=== PATIENT | male | born 1975 | race Two or more races ===

== ENCOUNTER 2017-11-22 11:32 | Emergency (ER) | payer OTHER ==
[2017-11-22 11:39] VITALS: BP 145/86; PULSE 77; RESP 16; TEMP 98.4; O2SAT 96
--- NOTE | 2017-11-22 12:33 | EDPHY ---
H & P Time Seen by Provider: 11/22/17 12:06 HPI/ROS: CHIEF COMPLAINT: Left hand laceration HISTORY OF PRESENT ILLNESS: 42-year-old [id number] male complaining of acute laceration to his left hand when he was using a razor blade at work and slipped. This was accidental. No paresthesia. Tetanus out-of-date. He does not vaccinate. PHYSICAL EXAM (Prior to examination, patient consented to physical exam, hands were washed and my usual and customary physical exam procedures followed) 1) GENERAL: Well-developed, well-nourished, alert and oriented. Appears to be in no acute distress. 2) HEAD: Normocephalic 3) HEENT: sclera anicteric 4) LUNGS: Breathing comfortably. 5) SKIN: Left hand in the dorsal webspace between the thumb and 2nd digit there is a 3 cm well-demarcated laceration, does have partial fascial involvement 6) MUSCULOSKELETAL: Abduction abduction extension intact with no deficits 7) NEUROLOGIC: Full sensation intact distally Smoking Status: Never smoked Constitutional: Initial Vital Signs Temperature (C) 36.9 C 11/22/17 11:37 Heart Rate 77 11/22/17 11:37 Respiratory Rate 16 11/22/17 11:37 Blood Pressure 145/86 H 11/22/17 11:37 O2 Sat (%) 96 11/22/17 11:37 O2 Delivery Mode Room Air Allergies/Adverse Reactions: No Known Allergies Allergy (Unverified 11/22/17 11:37) Home Medications: Medication Instructions Recorded Cephalexin [Keflex] 500 mg PO TID 7 Days cap 11/22/17 MDM/Departure - [facility] Procedures: Procedure: Laceration repair. I explained the indications, risks and benefits for both laceration repair and anesthetic administration. Verbal consent was obtained from the patient. The laceration on the left dorsal hand was anesthetized using 0.5% bupivicaine with epinephrine. After anesthetic administered the patient was observed for a period of time and had no apparent adverse effects. The wound was cleaned, prepped, draped in normal sterile fashion and explored to its base. No foreign body seen, no foreign bodies palpated. The wound was repaired with 6 simple interrupted 5 O Prolene sutures. The wound repair was complex. The procedure was performed by myself. Patient has been informed that scarring will occur, although efforts have been made to minimize this. Procedure: Splint A Velcro volar splint was applied by ER cell phone repair technician. After application of the splint I returned and re-examined the patient. The splint was adequately immobilizing the joint and distal to the splint the patient's circulation and sensation were intact. Patient shows no signs of compartment syndrome. Was given orthopedic precautions. ED Course/Re-evaluation: This patient was re-evaluated with serial examinations. He is noted to have partial laceration of the underlying muscle fascia. Skin has been sutured. He has been placed in Sylvain Velcro thumb spica, start prophylactic antibiotics. His tetanus is out-of-date and he states that he was not believe in vaccinations therefore declines tetanus vaccination. I have recommended follow-up with Hand surgery. This is a work comp related injury. He will need to speak with work comp provider as well however have recommend follow-up with Hand surgery. He is agreeable with this. Usual customary wound precautions instructions provided. Care of patient under supervision of secondary supervising physician Dr Kirkpatrick. - Depart Disposition: Home, Routine, Self-Care Clinical Impression: Laceration of left hand Qualifiers: Encounter type: initial encounter Foreign body presence: without foreign body Qualified Code(s): S61.412A - Laceration without foreign body of left hand, initial encounter Condition: Good Instructions: Care For Your Stitches (ED), Laceration (ED) Additional Instructions: Return to the ER if you develop redness, swelling, discharge, warmth to the wound, red streaks going up your arm, or any other symptoms that concern you. Stand Alone Forms: Work Excuse, Work Comp Follow Up Prescriptions: Cephalexin [Keflex] 500 mg PO TID 7 Days cap Referrals: Return, to the ER in 10 days for suture removal [Other] - As per Instructions Adriel Car MD [Medical Doctor] - 2-3 days, call for appt. (Dr Car is a hand surgeon. I recommend youy followup with him)
[2017-11-22] MEDS ORDERED: CEPHALEXIN 500 MG CAP PO ONE (13:30)
== END 2017-11-22 14:02 | disposition home or self-care (01) ==
PROC: 0HQGXZZ Repair Left Hand Skin, External Approach (ICD-10-PCS; principal; 2017-11-22)
DX: S61.412A Laceration without foreign body of left hand, initial encounter (principal); W26.8XXA Contact with other sharp object(s), not elsewhere classified, initial encounter; Y92.69 Other specified industrial and construction area as the place of occurrence of the external cause; Y99.0 Civilian activity done for income or pay; Y93.89 Activity, other specified
CPT/HCPCS: L3807